=== PATIENT | female | born 1970 | race Two or more races ===

== ENCOUNTER 2024-03-17 17:57 | Emergency (ER) | payer BC ==
[~2024-03-17] VITALS: Ht 165.1 cm; Wt 70.0 kg
[2024-03-17 18:08] VITALS: TEMP 98.1; O2SAT 99
[2024-03-17 18:35] VITALS: BP 146/80; PULSE 74; RESP 16; O2SAT 99
== END 2024-03-17 18:46 | disposition left against medical advice (07) ==
LOC: ER 17:57
DX: L29.9 Pruritus, unspecified (principal); Z53.21 Procedure and treatment not carried out due to patient leaving prior to being seen by health care provider